=== PATIENT | female | born 1965 | race African-American/Black ===

== ENCOUNTER 2017-12-03 17:29 | Emergency (ER) | payer SELFPAY ==
[2017-12-03] MEDS ORDERED: Naproxen 500 MG TAB ONE (17:59)
[2017-12-03] MEDS ORDERED: Sulfameth/Trimethoprim DS 800-160mg TAB ONE (17:59)
[2017-12-03] MEDS ORDERED: Cephalexin 500 MG CAP ONE (17:59)
[2017-12-03] MEDS ORDERED: HYDROcodone/Acetaminophen 10/325 mg Tablet ONE (17:59)
[2017-12-03] MEDS ORDERED: Nitroglycerin 50 MG/250 ML BOT 0 ML ONE (21:49)
== END 2017-12-03 18:12 | disposition home or self-care (01) ==
LOC: MADERS 17:29
DX: N90.7 Vulvar cyst (principal); F17.210 Nicotine dependence, cigarettes, uncomplicated
CPT/HCPCS: 99283

== ENCOUNTER 2018-03-26 11:38 | Emergency (ER) | payer SELFPAY | END 2018-03-26 12:10 | disposition home or self-care (01) | LOC: MADERS 11:38 | DX: J40 Bronchitis, not specified as acute or chronic (principal); F17.210 Nicotine dependence, cigarettes, uncomplicated | CPT/HCPCS: 99283 ==

== ENCOUNTER 2018-09-11 15:04 | Emergency (ER) | payer SELFPAY ==
[2018-09-11] MEDS ORDERED: Triple Antibiotic Oint 1 GM Packet ONE (15:39)
[2018-09-11] MEDS ORDERED: cloNIDine 0.1 MG TAB ONE (18:25)
== END 2018-09-11 15:45 | disposition home or self-care (01) ==
LOC: MADERS 15:04
DX: S00.412A Abrasion of left ear, initial encounter (principal); F17.210 Nicotine dependence, cigarettes, uncomplicated; X58.XXXA Exposure to other specified factors, initial encounter
CPT/HCPCS: 99282

== ENCOUNTER 2019-02-07 08:49 | Emergency (ER) | payer SELFPAY ==
[2019-02-07] MEDS ORDERED: Ketorolac Tromethamine 30 MG/ML VIAL ONE (09:56)
--- NOTE | 2019-02-07 10:24 | CT ---
Exam: CT cervical spine without contrast HISTORY: Trauma. Pain. COMPARISON: None FINDINGS: No craniocervical dissociation. Appropriate alignment of the lateral masses of C1 and C2. Intact odon toid process Appropriate alignment of the facets. Straightening of normal cervical lordosis may be due to patient position, muscle spasm or cervical co llar. Moderate degenerative changes at C5-C6. Soft tissue neck structures: No mass, lymphadenopathy or hematoma. No prevertebral soft tissue swelli ng. Upper mediastinum and lung apices: Minimal bilateral apical blebs. Central spinal canal: Neural foramina and central spinal canal are patent. Evaluation is limited by t echnique Vertebral bodies: Cervical spine vertebral body height is maintained. No fracture. IMPRESSION: 1. No cervical spine fracture. 2. Moderate degenerative change at C5-C6. 3. Straightening of normal cervical lordosis. MRI if there is concern for ligamentous injury.
== END 2019-02-07 10:35 | disposition home or self-care (01) ==
LOC: MADERS 08:49
DX: S16.1XXA Strain of muscle, fascia and tendon at neck level, initial encounter (principal); S46.912A Strain of unspecified muscle, fascia and tendon at shoulder and upper arm level, left arm, initial encounter; S46.911A Strain of unspecified muscle, fascia and tendon at shoulder and upper arm level, right arm, initial encounter; F17.210 Nicotine dependence, cigarettes, uncomplicated; V43.62XA Car passenger injured in collision with other type car in traffic accident, initial encounter
CPT/HCPCS: 72125; 96372; J1885